=== PATIENT | male | born 1965 | race Caucasian/White ===

== ENCOUNTER 2021-01-12 10:37 | Emergency (ER) | payer OTHER ==
[2021-01-12 10:38] VITALS: BP 143/124
== END 2021-01-12 12:11 | disposition home or self-care (01) ==
LOC: ED 10:37
DX: T40.411A Poisoning by fentanyl or fentanyl analogs, accidental (unintentional), initial encounter (principal); Z87.891 Personal history of nicotine dependence; Z88.6 Allergy status to analgesic agent; X58.XXXA Exposure to other specified factors, initial encounter

== ENCOUNTER 2021-12-27 11:35 | Emergency (ER) | payer OTHER, BC ==
[~2021-12-27] VITALS: Ht 172.7 cm; Wt 84.5 kg
[2021-12-27] MEDS ORDERED: DILTIAZEM 24HR120 M2 PO (12:03)
[2021-12-27 13:50] VITALS: BP 140/78
== END 2021-12-27 13:50 | disposition home or self-care (01) ==
LOC: ED 11:35
DX: M25.552 Pain in left hip (principal); Z28.311 Partially vaccinated for COVID-19
CPT/HCPCS: J1885